=== PATIENT | male | born 1965 | race Caucasian/White ===

== ENCOUNTER 2017-02-23 10:25 | Observation (INO) | payer OTHER ==
[2017-02-23] VITALS (12 sets, daily range): BP systolic 124–147; BP diastolic 67–93
[~2017-02-23] VITALS: Ht 193 cm; Wt 100.2 kg
--- NOTE | ~2017-02-23 | HC ---
[facility] [place] [address] CONSULTATION Name: RENATE BEATTY Room #: 404-P [facility] Aakash Shrestha#: [id number] Admission: 02/23/17 Attend Phys: Ervin Evangelista MD Discharge: 02/25/17 Date of : 69 Report #: [id number] THIS REPORT FOR: //name// CC: FAM unknown Ervin Evangelista REASON FOR PRESENTATION: Right-sided facial, submandibular swelling. REASON FOR CONSULTATION: Kidney cyst. HISTORY OF PRESENT ILLNESS: The patient is a 51-year-old with no known previous medical problems, who presented to the hospital complaining of the right-sided submandibular swelling. He is not known to have any chronic medical problems. Had a CT of the neck, chest and abdomen that revealed that the patient has right mid kidney cyst. Does not have hematuria, does not have any blood pressure related issues. He is also found to have a sitting on the floor of his mouth in submandibular duct. PAST MEDICAL HISTORY: None. MEDICATIONS: None. SOCIAL HISTORY: No drug or alcohol abuse. 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 FAMILY HISTORY: Diabetes mellitus and hypertension. ALLERGIES: No known drug allergies. REVIEW OF SYSTEMS: GENERAL: No fever or chills. CARDIOVASCULAR: No chest pain or palpitation. PULMONARY: No cough or hemoptysis. GASTROINTESTINAL: No nausea or vomiting. GENITOURINARY: No frequency or urgency. NEUROLOGICAL: No dizziness. HEME/ONC AND LYMPHATIC: Swollen right submandibular area. PHYSICAL EXAMINATION: GENERAL: He is alert, oriented, in no apparent distress. VITAL SIGNS: Reviewed blood pressure 111/55, respiratory rate 18, pulse rate 85. Atrial fimbriation. HEAD AND NECK: Right submandibular swelling. No JVD, no bruit, no thyromegaly. CHEST: Clear to auscultation bilaterally. CARDIOVASCULAR: Regular with no rub detected. ABDOMEN: Soft, nontender with no hepatosplenomegaly. LOWER EXTREMITIES: No edema with intact peripheral pulses. [address] [address] CONSULTATION Name: RENATE BEATTY Room #: [address] [place] [address] MJennifer.#: [id number] Admission: 02/23/17 Attend Phys: Ervin Evangelista MD Discharge: 02/25/17 Date of : 69 Report #: [id number] LABORATORY DATA: Reviewed. He has a normal kidney function. ASSESSMENT, IMPRESSION AND PLAN: 1. Right renal cyst. 2. Submandibular gland swelling. 3. I discussed with the patient and the finding. He does have simple right kidney cyst, there is nothing to be done at this point. He requested that we do not pursue any further workup due to financial issues. He has a normal kidney function and this will not need any further workup. Ideally would like to obtain an ultrasound on it however, because of the current financial difficulties, I will hold on any further workup based on the patient's request, available for any questions. <ELECTRONICALLY SIGNED> By: Elma Baig MD 02/27/17 1640 0815 1210 Elma Baig MD /nt
--- NOTE | ~2017-02-23 | EKG ---
[address] [address] ELECTROCARDIOGRAM REPORT Name: RENATE BEATTY Room #: 238-[facility] M..#: [id number] Admission: 02/23/17 Attend Phys: Ervin Evangelista MD Discharge: Date of : 69 Report #: [id number] THIS REPORT FOR: //name// 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
--- NOTE | ~2017-02-23 | H ---
[facility] [place] [address] HISTORY AND PHYSICAL Name: RENATE BEATTY Room #: 404-P [facility] Aakash Shrestha#: [id number] Admission: 02/23/17 Attend Phys: Ervin Evangelista MD Discharge: 02/25/17 Date of : 69 Report #: [id number] THIS REPORT FOR: //name// For History and Physical, please see office documentation/handwritten note in the patient's medical record. <ELECTRONICALLY SIGNED> By: Ervin Evangelista MD 02/25/17 1630 1148 Ervin Evangelista MD /
[2017-02-23 11:44] LABS: HEMATOCRIT 42.1 % (42.0-52.0); HEMOGLOBIN 14.6 gm/dL (14.0-18.0); MCH 32.2 pg (26.0-34.0); MCHC 34.8 g/dL (28.0-37.0); MCV 92.5 fL (80.0-100.0); RBC 4.55 mil/uL (4.50-6.00); RDW 12.3 % (10.5-14.5); WBC 11.8 thou/uL (4.0-11.0)
[2017-02-23 11:51] LABS: POTASSIUM 3.9 mmol/L (3.5-5.1)
[2017-02-24] VITALS (15 sets, daily range): BP systolic 103–155; BP diastolic 51–87
[2017-02-25 04:57] VITALS: BP 128/71
[2017-02-25 07:53] VITALS: BP 112/60
[2017-02-25 08:36] LABS: CALCIUM 8.2 mg/dL (8.5-10.1); CREATININE 0.8 mg/dL (0.7-1.3)
[2017-02-25 12:57] VITALS: BP 112/60
== END 2017-02-25 13:33 | disposition home or self-care (01) ==
LOC: ICU 10:25 → 4N 02-24 14:51
PROVIDERS: Otolaryngology Plastic Surgery within the Head & Neck
DX: K12.2 Cellulitis and abscess of mouth (principal); N28.1 Cyst of kidney, acquired; K11.20 Sialoadenitis, unspecified